=== PATIENT | female | born 1990 | race Caucasian/White ===

== ENCOUNTER 2017-02-23 19:57 | Inpatient (IN) ==
[2017-02-23 20:29] LABS: Bilirubin,Urine Negative (Negative); Blood,Urine Negative (Negative); Clarity,Urine Cloudy (Clear); Color,Urine Yellow (Yellow); Glucose,Urine (UA) Normal (Normal); Ketones,Urine Negative (Negative); Leukocyte Esterase,Urine Negative (Negative); Nitrite,Urine Negative (Negative); PH,Urine 7.5 pH Units (5.0-8.0); Protein,Urine Negative (Neg-Trace); Specific Gravity,Urine 1.023 (1.010-1.025); Urobilinogen,Urine Normal (Normal)
[2017-02-23 20:31] LABS: Bacteria,Urine None Seen per hpf (None-Few); Hyaline Casts,Urine None Seen per lpf (None-Few); RBC,Urine 0-3 per hpf (0-3); Squamous Epithelial Cell,Urine Many per lpf (None-Few); WBC,Urine 0-3 per hpf (0-3)
[2017-02-23 20:34] LABS: Amphetamine Screen,Urine Negative ng/mL (Cutoff=1000); Barbiturate Screen,Urine Negative ng/mL (Cutoff=200); Benzodiazepines Screen,Urine Positive ng/mL (Cutoff=200); Cannabinoid Screen,Urine Negative ng/mL (Cutoff = 50); Cocaine Screen,Urine Negative ng/mL (Cutoff= 300); Opiate Screen,Urine Negative ng/mL (Cutoff=300); Phencyclidine Screen,Urine Negative ng/mL (Cutoff=25)
[2017-02-23 20:47] LABS: Basophils # 0.1 K/mcL (0.0-0.2); Basophils % 0.5 %; Eosinophils # 0.2 K/mcL (0.0-0.6); Eosinophils % 1.7 %; Hemoglobin 10.9 g/dL (11.5-15.4); Immature Granulocytes % 0.4 % (0-4); Lymphocytes # 3.1 K/mcL (0.6-4.6); Lymphocytes % 28.1 %; Mean Corpuscular HGB Conc 31.1 g/dL (31.6-35.5); Mean Corpuscular Hemoglobin 24.8 pg (28.0-33.3); Mean Corpuscular Volume 79.5 fL (83.0-100.0); Mean Platelet Volume 10.3 fL (9.4-12.4); Monocytes # 0.7 K/mcL (0.0-1.3); Monocytes % 5.9 %; Platelet Count 316 K/mcL (140-400); Red Cell Distribution Width 18.4 % (11.5-14.5); Segmented Neutrophils % 63.4 %
[2017-02-23 21:00] LABS: BUN/Creatinine Ratio 17 (6-26); Blood Urea Nitrogen 10 mg/dL (6-20); Calcium 9.3 mg/dL (8.6-10.3); Carbon Dioxide 19 mEq/L (23-29); Chloride 110 mEq/L (98-107); Glucose 95 mg/dL (70-105); Osmolality,Calculated 283 (280-300); Potassium 3.9 mEq/L (3.5-5.1); Sodium 137 mEq/L (136-145); eGFR For African Americans > 60 (> 60); eGFR For Non-African Americans > 60 (> 60)
[2017-02-23 21:03] LABS: Acetaminophen < 1.0 mcg/mL (10-30); Ethanol < 10 mg/dL (0-10); Salicylate < 5.0 mg/dL (15.0-30.0)
--- NOTE | 2017-02-23 21:31 | Emergency Department Note ---
Disposition Clinical Impression: Acute psychosis, Auditory hallucination Disposition: Still a Patient Condition: Fair Referrals: Christal Torres CNP [Advanced Practice Nurse] - Souleymane Ashford MD [Family Provider] - Forms: ED Satisfaction Letter Time of Disposition: 23:21 Psych HPI - General Chief Complaint: ED Psychiatric Symptoms Stated Complaint: SI Time Seen by Provider: 02/23/17 20:41 Source: patient, family Mode of arrival: ambulatory Limitations: no limitations Nursing Notes Reviewed: Yes Vital Signs Reviewed: Yes - History of Present Illness HPI Narrative: Patient emergency department complaining of hearing voices. She states she has a voice name Cathy who tells her to cut herself. She states when she cuts herself she stops telling her to do things. She states she also tells her to kill herself but she does not want to kill herself. She has a history of bipolar. She is on Prozac. - Related Data Home Medications Medication Instructions Recorded Confirmed FLUoxetine HCl [Fluoxetine HCl] 40 mg PO DAILY 02/23/17 02/23/17 Allergies Allergy/AdvReac Type Severity Reaction Status Date / Time acetaminophen [From Tylenol] Allergy Hives Verified 02/23/17 19:58 sertraline [From Zoloft] Allergy Migraine Verified 02/23/17 19:58 All systems ED: reviewed and negative except as stated. Constitutional: Denies: fever Cardiovascular: Denies: chest pain Respiratory: Denies: dyspnea Past Medical History - Past Medical History Medical history: Reports: no medical history Psychiatric history: Reports: anxiety, bipolar, depression, schizophrenia TIP MENDER history: Reports: bilateral tubal ligation - Social History Smoking Status: Current every day smoker Smokeless Tobacco Status: No Alcohol use: Reports: none Drug use: Reports: none Physical Exam Patient laying on her side in bed in no distress. Superficial abrasions to wrists and right leg. - General Limitations: no limitations General appearance: alert, in no apparent distress - Head Head exam: atraumatic, normocephalic - Eye Eye exam: Present: normal appearance - ENT ENT exam: normal exam, normal oropharynx - Neck Neck exam: Present: normal inspection - Chest Chest inspection: Present: normal inspection - Respiratory Respiratory exam: Present: normal lung sounds bilaterally. Absent: respiratory distress - Cardiovascular Cardiovascular exam: Present: regular rate, normal rhythm, normal heart sounds - Abdominal Exam Abdominal exam: Present: soft, Non-Tender - Neurological Exam Neurological exam: Present: alert, oriented X3 - Psychiatric Psychiatric exam: Present: flat affect - Skin Skin exam: Present: warm, dry Course Course Narrative: Superficial abrasions to legs and arms. No active bleeding. Tetanus up-to- date. Patient is medically cleared at this time. We will [id number]. - Reevaluation(s) Reevaluation #1: 1A contacted for evaluation Time: 21:29 Reevaluation #2: SIgned out to Dr Chen pending psych eval. Time: 23:20 Vital Signs Temperature 97.9 F 02/23/17 19:58 Pulse Rate 85 02/23/17 19:58 Respiratory Rate 16 02/23/17 19:58 Blood Pressure 129/80 02/23/17 19:58 O2 Sat by Pulse Oximetry 100 02/23/17 19:58 Temperature 97.9 F 02/23/17 19:58 Pulse Rate 85 02/23/17 19:58 Respiratory Rate 16 02/23/17 19:58 Blood Pressure 129/80 02/23/17 19:58 O2 Sat by Pulse Oximetry 100 02/23/17 19:58 Oxygen Delivery Oxygen Delivery Room Air Psych - Lab Data Result diagrams: 02/23/17 20:39 02/23/17 20:39 Lab Results 02/23/17 02/23/17 02/23/17 Range/Units 20:15 20:15 20:39 WBC 11.0 (4.3-11.1) K/mcL RBC 4.40 (3.82-4.97) M/mcL Hgb 10.9 L (11.5-15.4) g/dL Hct 35.0 L (35.3-44.9) % MCV 79.5 L (83.0-100.0) fL MCH 24.8 L (28.0-33.3) pg MCHC 31.1 L (31.6-35.5) g/dL RDW 18.4 H (11.5-14.5) % Plt Count 316 (140-400) K/mcL MPV 10.3 (9.4-12.4) fL Immature Gran % 0.4 (0-4) % Seg Neutrophils % 63.4 % Lymphocytes % 28.1 % Monocytes % 5.9 % Eosinophils % 1.7 % Basophils % 0.5 % Neutrophils # 7.0 (1.6-8.9) K/mcL Lymphocytes # 3.1 (0.6-4.6) K/mcL Monocytes # 0.7 (0.0-1.3) K/mcL Eosinophils # 0.2 (0.0-0.6) K/mcL Basophils # 0.1 (0.0-0.2) K/mcL Sodium (136-145) mEq/L Potassium (3.5-5.1) mEq/L Chloride (98-107) mEq/L Carbon Dioxide (23-29) mEq/L BUN (6-20) mg/dL Creatinine (0.60-1.20) mg/dL Est GFR ( Amer) (> 60) Est GFR (Non-Af Amer) (> 60) BUN/Creatinine Ratio (6-26) Glucose (70-105) mg/dL Calculated Osmolality (280-300) Calcium (8.6-10.3) mg/dL Urine Color Yellow (Yellow) Urine Clarity Cloudy A (Clear) Urine pH 7.5 (5.0-8.0) pH Units Ur Specific [place] 1.023 (1.010-1.025) Urine Protein Negative (Neg-Trace) mg/dL Urine Glucose (UA) Normal (Normal) mg/dL Urine Ketones Negative (Negative) mg/dL Urine Blood Negative (Negative) Urine Nitrite Negative (Negative) Urine Bilirubin Negative (Negative) Urine Urobilinogen Normal (Normal) mg/dL Ur Leukocyte Esterase Negative (Negative) Urine Microscopic RBC 0-3 (0-3) per hpf Urine Microscopic WBC 0-3 (0-3) per hpf Ur Squamous Epith Cells Many H (None-Few) per lpf Urine Bacteria None Seen (None-Few) per hpf Hyaline Casts None Seen (None-Few) per lpf Salicylates (15.0-30.0) mg/dL Urine Opiates Screen Negative (Usfpzb=627) ng/mL Acetaminophen (10-30) mcg/mL Ur Barbiturates Screen Negative (Qlzjxz=955) ng/mL Ur Phencyclidine Scrn Negative (Cutoff=25) ng/mL Ur Amphetamines Screen Negative (Vezxwy=2920) ng/mL U Benzodiazepines Scrn Positive H (Qwqwcx=186) ng/mL Urine Cocaine Screen Negative (Cutoff= 300) ng/mL U Marijuana (THC) Screen Negative (Cutoff = 50) ng/mL Ethyl Alcohol (0-10) mg/dL 02/23/17 Range/Units 20:39 WBC (4.3-11.1) K/mcL RBC (3.82-4.97) M/mcL Hgb (11.5-15.4) g/dL Hct (35.3-44.9) % MCV (83.0-100.0) fL MCH (28.0-33.3) pg MCHC (31.6-35.5) g/dL RDW (11.5-14.5) % Plt Count (140-400) K/mcL MPV (9.4-12.4) fL Immature Gran % (0-4) % Seg Neutrophils % % Lymphocytes % % Monocytes % % Eosinophils % % Basophils % % Neutrophils # (1.6-8.9) K/mcL Lymphocytes # (0.6-4.6) K/mcL Monocytes # (0.0-1.3) K/mcL Eosinophils # (0.0-0.6) K/mcL Basophils # (0.0-0.2) K/mcL Sodium 137 (136-145) mEq/L Potassium 3.9 (3.5-5.1) mEq/L Chloride 110 H (98-107) mEq/L Carbon Dioxide 19 L (23-29) mEq/L BUN 10 (6-20) mg/dL Creatinine 0.59 L (0.60-1.20) mg/dL Est GFR ( Amer) > 60 (> 60) Est GFR (Non-Af Amer) > 60 (> 60) BUN/Creatinine Ratio 17 (6-26) Glucose 95 (70-105) mg/dL Calculated Osmolality 283 (280-300) Calcium 9.3 (8.6-10.3) mg/dL Urine Color (Yellow) Urine Clarity (Clear) Urine pH (5.0-8.0) pH Units Ur Specific [place] (1.010-1.025) Urine Protein (Neg-Trace) mg/dL Urine Glucose (UA) (Normal) mg/dL Urine Ketones (Negative) mg/dL Urine Blood (Negative) Urine Nitrite (Negative) Urine Bilirubin (Negative) Urine Urobilinogen (Normal) mg/dL Ur Leukocyte Esterase (Negative) Urine Microscopic RBC (0-3) per hpf Urine Microscopic WBC (0-3) per hpf Ur Squamous Epith Cells (None-Few) per lpf Urine Bacteria (None-Few) per hpf Hyaline Casts (None-Few) per lpf Salicylates < 5.0 L (15.0-30.0) mg/dL Urine Opiates Screen (Qtegpv=095) ng/mL Acetaminophen < 1.0 L (10-30) mcg/mL Ur Barbiturates Screen (Bneoix=668) ng/mL Ur Phencyclidine Scrn (Cutoff=25) ng/mL Ur Amphetamines Screen (Iczynn=6796) ng/mL U Benzodiazepines Scrn (Qpdcco=811) ng/mL Urine Cocaine Screen (Cutoff= 300) ng/mL U Marijuana (THC) Screen (Cutoff = 50) ng/mL Ethyl Alcohol < 10 (0-10) mg/dL Psychiatric Medical Clearance - Medical Clearance Checklist Medical History: No Social History Section defined Current Vitals: Last Vital Signs Temp 97.9 F 02/23/17 19:58 Pulse 85 02/23/17 19:58 Resp 16 02/23/17 19:58 BP 129/80 02/23/17 19:58 Pulse Ox 100 02/23/17 19:58 Psychiatric Lab Panel: Drug Levels and Toxicity 02/23/17 02/23/17 20:15 20:39 Urine Opiates Screen Negative Acetaminophen < 1.0 L Ur Barbiturates Screen Negative Ur Phencyclidine Scrn Negative Ur Amphetamines Screen Negative U Benzodiazepines Scrn Positive H Urine Cocaine Screen Negative U Marijuana (THC) Screen Negative Ethyl Alcohol < 10 Abnormal Labs: Abnormal lab results Hgb 10.9 g/dL (11.5-15.4) L 02/23/17 20:39 Hct 35.0 % (35.3-44.9) L 02/23/17 20:39 MCV 79.5 fL (83.0-100.0) L 02/23/17 20:39 MCH 24.8 pg (28.0-33.3) L 02/23/17 20:39 MCHC 31.1 g/dL (31.6-35.5) L 02/23/17 20:39 RDW 18.4 % (11.5-14.5) H 02/23/17 20:39 Chloride 110 mEq/L (98-107) H 02/23/17 20:39 Carbon Dioxide 19 mEq/L (23-29) L 02/23/17 20:39 Creatinine 0.59 mg/dL (0.60-1.20) L 02/23/17 20:39 Urine Clarity Cloudy (Clear) A 02/23/17 20:15 Ur Squamous Epith Cells Many per lpf (None-Few) H 02/23/17 20:15 Salicylates < 5.0 mg/dL (15.0-30.0) L 02/23/17 20:39 Acetaminophen < 1.0 mcg/mL (10-30) L 02/23/17 20:39 U Benzodiazepines Scrn Positive ng/mL (Yyxkzp=417) H 02/23/17 20:15 Statement of Medical Clearance: I have evaluated the patient, reviewed diagnostic information, and certify that the patient's medical condition is sufficiently stable that transfer to the psychiatric unit does not pose a significant risk of deterioration.
[2017-02-24] MEDS ORDERED: Acetaminophen 325 MG TABLET PO PRN (00:08)
[2017-02-24] MEDS ORDERED: Mag Hydrox/Al Hydrox/Simeth 30 ML UDC PO PRN (00:08)
[2017-02-24] MEDS ORDERED: *HR* LORazepam 2 MG/ML VIAL IM PRN (00:08)
[2017-02-24] MEDS ORDERED: *HR* LORazepam 1 MG TABLET PO PRN (00:08)
[2017-02-24] MEDS ORDERED: MOM Conc 10 ML UD.LIQ PO PRN (00:08)
[2017-02-24] MEDS ORDERED: Haloperidol Lactate 5 MG/ML VIAL IM PRN (00:08)
[2017-02-24] MEDS: traZODone 50 MG TABLET PO PRN ×2 (00:55→20:30)
[2017-02-24] MEDS: Ibuprofen 400 MG TABLET PO PRN ×2 (00:55→20:30)
[2017-02-24] MEDS ORDERED: Nicotine 2 MG GUM BC PRN (01:00)
[2017-02-24] MEDS: FLUoxetine 20 MG CAPSULE PO SCH (08:40)
--- NOTE | 2017-02-24 12:57 | Psychiatry History & Physical ---
Date of Encounter: 02/24/17 Time of Encounter: 12:44 History of Present Illness Patient Stated Chief Complaint: AH Medicare Admission Attestation: For traditional Medicare patients the provided hospital inpatient services are reasonable and necessary and in the case of services not specified as inpatient -only under 42 CFR 419.22 (n), that they are appropriately provided as inpatient services in accordance 42 CFR 412.3. For Critical Access Hospital the patient may reasonably be expected to be discharged or transferred to a hospital within 96 hours after admission to the Critical Access Hospital. Admitted From: Home Plans for Post Hospital Care: Home History of Present Illness: Ms. Knutson is a 26 year old female who was admitted secondary to new onset AH. Client reports she started hearing voices five days ago. States she hears a male voice which is good and a female voice which is bad and encourages her to self harm. Started cutting to relieve stress. Claims when she cuts the voices go away for about two hours and then return. Adamantly denies SI. Has multiple stressors. Lost to a drug overdose in April. Lost mother as well. Has four kids and this was their first holiday without their father. Sister lives with her and helps look after the children. Does not appear as if she has a thought disorder. AH likely secondary to PTSD/stress. Client reports she was diagnosed with Bipolar Disorder in her youth and tried on a variety of meds but that she has not needed mental health care as an adult. Takes Prozac from her PCP but otherwise she manages well. Discussed adding Abilify to her current Prozac dose as this med can help with depression in addition to AH. Client agreeable. She denies any physical health problems. Denies all substance abuse except for occasional THC. Past Med Surg Social Fam HX - Past Medical History Medical history: no medical history - Past Psychiatric History Psychiatric history: Reports: anxiety, bipolar Family psychiatric history: Unknown Family History of Suicide: Unknown - Past Surgical History Surgical History: cholecystectomy - Social History Smoking Status: Current every day smoker Smokeless Tobacco Status: No Alcohol use: none Drug use: none - Family History Mother History Unknown: Yes Medications & Allergies FLUoxetine HCl [Fluoxetine HCl] 40 mg PO DAILY 02/23/17 [History] 3 Allergy/AdvReac Type Severity Reaction Status Date / Time acetaminophen [From Tylenol] Allergy Hives Verified 02/23/17 19:58 sertraline [From Zoloft] Allergy Migraine Verified 02/23/17 19:58 Review of Systems Constitutional: Denies: fever, chills, weakness, weight change Eyes: Denies: eye pain, vision change Ears, Nose, Throat: Denies: ear pain, throat pain, dental pain, hearing loss, congestion Cardiovascular: Denies: chest pain, palpitations, dyspnea on exertion Respiratory: Denies: cough, dyspnea, wheezes Gastrointestinal: Denies: abdominal pain, nausea, vomiting, diarrhea, constipation Genitourinary male: Denies: urgency, dysuria, frequency, genital lesions Genitourinary female: Denies: urgency, dysuria, frequency, abnormal menses, dyspareunia Musculoskeletal: Denies: joint swelling, joint pain Integumentary: Denies: rash, lesions, pruritus Neurological: Denies: headache, weakness, numbness, memory loss Endocrine: Denies: fatigue, heat or cold intolerance Hematologic/Lymphatic: Denies: easy bruising, lymphadenopathy Allergic/Immunologic: Denies: urticaria, itchy eyes Mental Status Exam Patient orientation: Yes Person, Yes Time, Yes Place Level of alertness: Alert Patient appearance: Appropriate, Well Groomed Behavior: calm, cooperative Psychomotor activity: Agitated Eye contact: Maintains Eye Contact Mood description: Anxious Affect description: congruent with mood Speech pattern: Normal rate, Normal rhythm, Normal tone Speech volume: Normal Thought process: Linear Thought content: No Suicidal ideation, No Homicidal ideation, No Overt delusions Perceptual disturbances: Yes Auditory hallucinations Attention span: Capable of Focused Attention Memory description: Grossly Intact Patient reliability: Reliable Historian Intelligence estimate: Average Judgment: Limited Insight: Partial Exam - HEENT Head exam IM: Present: atraumatic Eye exam IM: Present: EOMI ENT exam IM: Present: mucous membranes moist - Neurological Neurological exam IM: Present: alert, oriented X3 - Respiratory Respiratory exam IM: Present: CTAB - GI/Abdominal GI/Abdominal exam IM: Present: normal bowel sounds - Extremities Extremities exam IM: Present: full ROM - Skin Skin exam IM: Present: normal color Results - Vital Signs Vital signs: Temp Pulse Resp BP Pulse Ox 97.6 F 67 16 110/68 100 02/24/17 09:00 02/24/17 09:00 02/24/17 09:00 02/24/17 09:00 02/23/17 19:58 - Labs Labs: Laboratory Last Values WBC 11.0 K/mcL (4.3-11.1) 02/23/17 20:39 RBC 4.40 M/mcL (3.82-4.97) 02/23/17 20:39 Hgb 10.9 g/dL (11.5-15.4) L 02/23/17 20:39 Hct 35.0 % (35.3-44.9) L 02/23/17 20:39 MCV 79.5 fL (83.0-100.0) L 02/23/17 20:39 MCH 24.8 pg (28.0-33.3) L 02/23/17 20:39 MCHC 31.1 g/dL (31.6-35.5) L 02/23/17 20:39 RDW 18.4 % (11.5-14.5) H 02/23/17 20:39 Plt Count 316 K/mcL (140-400) 02/23/17 20:39 MPV 10.3 fL (9.4-12.4) 02/23/17 20:39 Immature Gran % 0.4 % (0-4) 02/23/17 20:39 Seg Neutrophils % 63.4 % 02/23/17 20:39 Lymphocytes % 28.1 % 02/23/17 20:39 Monocytes % 5.9 % 02/23/17 20:39 Eosinophils % 1.7 % 02/23/17 20:39 Basophils % 0.5 % 02/23/17 20:39 Neutrophils # 7.0 K/mcL (1.6-8.9) 02/23/17 20:39 Lymphocytes # 3.1 K/mcL (0.6-4.6) 02/23/17 20:39 Monocytes # 0.7 K/mcL (0.0-1.3) 02/23/17 20:39 Eosinophils # 0.2 K/mcL (0.0-0.6) 02/23/17 20:39 Basophils # 0.1 K/mcL (0.0-0.2) 02/23/17 20:39 Sodium 137 mEq/L (136-145) 02/23/17 20:39 Potassium 3.9 mEq/L (3.5-5.1) 02/23/17 20:39 Chloride 110 mEq/L (98-107) H 02/23/17 20:39 Carbon Dioxide 19 mEq/L (23-29) L 02/23/17 20:39 BUN 10 mg/dL (6-20) 02/23/17 20:39 Creatinine 0.59 mg/dL (0.60-1.20) L 02/23/17 20:39 Est GFR ( Amer) > 60 (> 60) 02/23/17 20:39 Est GFR (Non-Af Amer) > 60 (> 60) 02/23/17 20:39 BUN/Creatinine Ratio 17 (6-26) 02/23/17 20:39 Glucose 95 mg/dL (70-105) 02/23/17 20:39 Calculated Osmolality 283 (280-300) 02/23/17 20:39 Calcium 9.3 mg/dL (8.6-10.3) 02/23/17 20:39 Urine Color Yellow (Yellow) 02/23/17 20:15 Urine Clarity Cloudy (Clear) A 02/23/17 20:15 Urine pH 7.5 pH Units (5.0-8.0) 02/23/17 20:15 Ur Specific [place] 1.023 (1.010-1.025) 02/23/17 20:15 Urine Protein Negative mg/dL (Neg-Trace) 02/23/17 20:15 Urine Glucose (UA) Normal mg/dL (Normal) 02/23/17 20:15 Urine Ketones Negative mg/dL (Negative) 02/23/17 20:15 Urine Blood Negative (Negative) 02/23/17 20:15 Urine Nitrite Negative (Negative) 02/23/17 20:15 Urine Bilirubin Negative (Negative) 02/23/17 20:15 Urine Urobilinogen Normal mg/dL (Normal) 02/23/17 20:15 Ur Leukocyte Esterase Negative (Negative) 02/23/17 20:15 Urine Microscopic RBC 0-3 per hpf (0-3) 02/23/17 20:15 Urine Microscopic WBC 0-3 per hpf (0-3) 02/23/17 20:15 Ur Squamous Epith Cells Many per lpf (None-Few) H 02/23/17 20:15 Urine Bacteria None Seen per hpf (None-Few) 02/23/17 20:15 Hyaline Casts None Seen per lpf (None-Few) 02/23/17 20:15 Salicylates < 5.0 mg/dL (15.0-30.0) L 02/23/17 20:39 Urine Opiates Screen Negative ng/mL (Swfqzu=042) 02/23/17 20:15 Acetaminophen < 1.0 mcg/mL (10-30) L 02/23/17 20:39 Ur Barbiturates Screen Negative ng/mL (Krvdts=661) 02/23/17 20:15 Ur Phencyclidine Scrn Negative ng/mL (Cutoff=25) 02/23/17 20:15 Ur Amphetamines Screen Negative ng/mL (Zgzaiy=4815) 02/23/17 20:15 U Benzodiazepines Scrn Positive ng/mL (Mgdopi=309) H 02/23/17 20:15 Urine Cocaine Screen Negative ng/mL (Cutoff= 300) 02/23/17 20:15 U Marijuana (THC) Screen Negative ng/mL (Cutoff = 50) 02/23/17 20:15 Ethyl Alcohol < 10 mg/dL (0-10) 02/23/17 20:39 Assessment and Plan (1) Major depression with psychotic features Current visit: Yes Status: Acute Plan: Admit inpatient for safety and stabilization, Close observation, Suicide Precautions per unit protocol, Encourage participation in unit milieu, Group Therapy, Monitor sleep, Monitor appetite Risks, benefits, side effects, alternatives discussed w/pt: Yes Patient agreeable to treatment: Yes Plans for Post Hospital Care: Home Estimated Length of Stay (Days): 4
[2017-02-24] MEDS: ARIPiprazole 10 MG TABLET PO SCH (13:12)
[2017-02-24] MEDS: hydrOXYzine pamoate 25 MG CAPSULE PO PRN (20:30)
[2017-02-25] MEDS: FLUoxetine 20 MG CAPSULE PO SCH (09:38)
[2017-02-25] MEDS: ARIPiprazole 10 MG TABLET PO SCH (09:39)
[2017-02-25] MEDS: Ibuprofen 400 MG TABLET PO PRN (12:16)
--- NOTE | 2017-02-25 13:25 | Psychiatry Progress Note ---
Date of Encounter: 02/25/17 Time of Encounter: 13:22 Subjective Interval history: Looks much better. Not rocking. Good eye contact. States AH have lessened and not feeling the urge to cut. Smiling with a much brighter affect. Client reports a noticeable difference as well. States Abilify makes her tired but otherwise denies any side effects. Missing her kids. Discussed giving it one more night to ensure she is not having a flight into health and so staff can contact her family to safety plan. However, if she is still feeling this improved tomorrow will plan on discharging her home with outpatient follow-up. Review of Systems Constitutional: Denies: fever, chills, weakness, weight change Eyes: Denies: eye pain, vision change Ears, Nose, Throat: Denies: ear pain, throat pain, dental pain, hearing loss, congestion Cardiovascular: Denies: chest pain, palpitations, dyspnea on exertion Respiratory: Denies: cough, dyspnea, wheezes Gastrointestinal: Denies: abdominal pain, nausea, vomiting, diarrhea, constipation Musculoskeletal: Denies: joint swelling, joint pain Neurological: Denies: headache, weakness, numbness, memory loss Objective: Exam Patient orientation: Yes Person, Yes Time, Yes Place Level of alertness: Alert Patient appearance: Appropriate, Well Groomed Behavior: calm, cooperative Psychomotor activity: Normal Eye contact: Maintains Eye Contact Mood description: Euthymic/stable Affect description: congruent with mood, full range Speech pattern: Normal rate, Normal rhythm, Normal tone Speech volume: Normal Thought process: Linear Thought content: No Suicidal ideation, No Homicidal ideation, No Overt delusions Perceptual disturbances: Yes Auditory hallucinations, No Visual hallucinations Judgment: Fair Insight: Partial Results - Vital Signs Vital Signs: Temp Pulse Resp BP Pulse Ox 98.2 F 85 16 107/65 100 02/25/17 09:00 02/25/17 09:00 02/25/17 09:00 02/25/17 09:00 02/23/17 19:58 Assessment and Plan (1) Major depression with psychotic features Current visit: Yes Status: Acute Plan: Continue hospitalization, Close observation, Suicide Precautions per unit protocol, Encourage participation in unit milieu, Group Therapy, Monitor sleep, Monitor appetite Risks, benefits, side effects, alternatives discussed w/pt: Yes Patient agreeable to treatment: Yes Consult Discharge Plan - Plan Referrals: [facility] [Outside] (The new upper caser assigned to you will contact you directly to schedule your intake appointment for case management and mental health counseling services. ) [facility] [Outside] (The above appointment is with for outpatient psychiatric assessment and medication management services. Please arrive 30 minutes early to complete paperwork. Please bring your photo ID ( bring proof of address if you do not have an ID) and medication list. The above appointment(s) reflects first availability. You may contact the office regularly to check for cancellations that may allow you to be seen sooner. )
[2017-02-25] MEDS: hydrOXYzine pamoate 25 MG CAPSULE PO PRN (18:10)
[2017-02-25] MEDS: traZODone 50 MG TABLET PO PRN (20:06)
[2017-02-26] MEDS: FLUoxetine 20 MG CAPSULE PO SCH (09:10)
[2017-02-26] MEDS: ARIPiprazole 10 MG TABLET PO SCH (09:10)
[2017-02-26 10:26] VITALS: BP 95/62
--- NOTE | 2017-02-26 10:29 | Discharge Summary ---
Date of Encounter: 02/26/17 Time of Encounter: 10:27 Diagnosis - Discharge Diagnosis (1) Major depression with psychotic features Status: Acute Medications - Discharge Medications Prescriptions: ARIPiprazole [Abilify] 5 mg PO DAILY #15 tablet hydrOXYzine pamoate [HydrOXYzine Pamoate] 25 mg PO TID PRN #90 capsule PRN Reason: Anxiety FLUoxetine HCl [Fluoxetine HCl] 40 mg PO DAILY 02/23/17 [History] ARIPiprazole [Abilify] 5 mg PO DAILY #15 tablet 02/26/17 [Rx] hydrOXYzine pamoate [HydrOXYzine Pamoate] 25 mg PO TID PRN #90 capsule 02/26/17 [Rx] 3 Allergy/AdvReac Type Severity Reaction Status Date / Time acetaminophen [From Tylenol] Allergy Hives Verified 02/23/17 19:58 sertraline [From Zoloft] Allergy Migraine Verified 02/23/17 19:58 Provider Date of admission: 02/23/17 23:58 Primary care physician: PCP NONE Discharging clinician: Farida Chen Assessment and Plan - Patient/Caregiver Discharge Instructions Activity: resume usual activities as tolerated Diet: regular diet - Follow up Plan Follow up with: [facility] [Outside] (The new shoe caser assigned to you will contact you directly to schedule your intake appointment for case management and mental health counseling services. ) [facility] [Outside] - 04/05/17 9:30 am (The above appointment is with Sherwin Tamay[facility] for outpatient psychiatric assessment and medication management services. Please arrive 30 minutes early to complete paperwork. Please bring your photo ID (bring proof of address if you do not have an ID) and medication list. The above appointment(s) reflects first availability. You may contact the office regularly to check for cancellations that may allow you to be seen sooner. ) Overall status at discharge: Stable Disposition: Home, Self-Care Hospital Course Hospital course: Ms. Knutson is a 26 year old female who was admitted secondary to command auditory hallucinations and cutting behaviors. Client was never suicidal and continued to deny SI on the day of discharge. She was already taking Prozac and Abilify was added as an adjunctive treatment. Voices were felt to be secondary to extreme stress and not the result of a thought disorder. Client improved quickly being in a safe environment and taking medications that worked for her. She was social. She attended groups. She ate and slept well. She was denying AH on the day of discharge. She also was denying any urges to cut or self harm in any way. - Time Spent with Patient Total time spent providing and/or coordinating discharge services: Quality - Multiple Antipsychotics Patient discharged on 2 or more antipsychotic medications: No Procedures - Procedures Procedures: Medication Management, Crisis Stabilization, Supportive Therapy, Group Therapy Mental Status Exam - Mental Status Exam Patient orientation: Yes Person, Yes Time, Yes Place Level of alertness: Alert Patient appearance: Appropriate, Well Groomed Behavior: calm, cooperative Psychomotor activity: Normal Eye contact: Maintains Eye Contact Mood description: Euthymic/stable Affect description: congruent with mood, full range Speech pattern: Normal rate, Normal rhythm, Normal tone Speech Volume: Normal Thought process: Linear, Goal Oriented Thought Content: No Suicidal ideation, No Homicidal ideation, No Overt delusions Perceptual Disturbances: No Auditory hallucinations, No Visual hallucinations Judgment: Fair Insight: Partial
== END 2017-02-26 11:28 | disposition home or self-care (01) | DRG 753 ==
LOC: EMEROO 19:57 → 1ANU 23:58
PROVIDERS: ADMIT Psychiatry & Neurology Psychiatry; ATTEND Psychiatry & Neurology Psychiatry